=== PATIENT | female | born 1960 | race Caucasian/White ===

== ENCOUNTER 2016-12-07 14:10 | Day surgery (SDC) | payer MEDICARE ==
[~2016-12-07] VITALS: Ht 160 cm; Wt 115.7 kg
[~2016-12-07 14:10] MED LIST: ADVAIR 250/5028 PUFF IN; ALBUTEROL-200 PUFFS/ IH; AMLODIPINE10 MG PO; CLONAZEPAM0.5 M1 PO; IPRATROPIUM 2.2.5 ML INH; LISINOPRIL40 MG PO; LORTAB 10/3251 TAB PO; METFORMIN500 MG PO; METOPROLOL TAR100 MG PO; PERCOCET 10 MG1 EACH PO; PRAVASTATIN 20M20 MG PO; PREDNISONE 20MG20 MG PO; SINGULAIR 10 MG10 MG PO; VENTOLIN H0.09 MG/AC IH; ZITHROMAX Z PA250 MG PO
[2016-12-07 14:27] VITALS: BP 152/56
[2016-12-07 14:44] VITALS: BP 152/56
[2016-12-07 14:45] VITALS: BP 152/56
--- NOTE | 2016-12-07 14:51 | Procedure Note ---
Procedure detail Date of procedure: 12/07/16 Anesthesiologist: Blood pressure alicia CLAYTON Complications: None Pre-procedure diagnosis: Degenerative osteoporosis RIGHT knee Post-procedure diagnosis: Same Indications for procedure: This patient's a very pleasant 56-year-old morbidly obese white female that we treating her pain clinic for chronic low back pain in her to degenerative disc disease lumbar spine multiple levels lumbar recopy symptoms. Patient describes low back pain as constant, dull, aching. She rates her pain a 6/10. Patient also complaining of RIGHT knee pain. 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 Patient requesting RIGHT intra-articular knee injection today. I think this would be reasonable given the degree of degenerative osteoarthritis. We will schedule her RIGHT intra-articular knee injection. We do medically manage the patient with Percocet 10 mg 1 by mouth U ID. Patient reports pain medicine decreases her pain by 50-75 percent. She does not report any side effects from the pain medication. I discussed in detail with the patient regarding weight loss. I counseled her on nutritional choices. Patient resists today for RIGHT intra-articular knee injection. Procedure detail: Details of procedures by the patient. The patient was taken to the procedure room in the sitting position. The area of the RIGHT knee was cleansed using chlorhexidine as a cleansing solution. A marker was placed at the inferior lateral border of the patella. The skin and subcu tissue was anesthetized using 1 percent lidocaine and 25-gauge needle. Using a 22-gauge inch and a half needle the RIGHT knee joint was accessed and 3 mL of 0.25 percent Marcaine +3 mL 1 percent lidocaine and 40 mg of Depo-Medrol was injected. The needle was removed. Band-Aids applied. Patient on the procedure without difficulty. There were no complications. Plan and disposition: Patient was reevaluated 10 minutes post procedure. Patient reports 90 percent improvement terms of her RIGHT knee pain. at [id number]
[2016-12-07 14:52] VITALS: BP 154/75
--- OUTSIDE RECORDS SUMMARY | 2016-12-07 18:04 | External Medical Summary Rpt ---
Author Author [facility], [employer] Organization [employer] Address Unknown Phone Unavailable
--- OUTSIDE RECORDS SUMMARY | 2016-12-07 18:04 | External Medical Summary Rpt ---
Demographics Preferred Language Luxembourgish Marital Status Unknown Judaism Affiliation Unknown Race Unknown Ethnic Group Unknown Author Author , Organization [employer] Address Unknown Phone Unavailable Purpose Continuity of Care Document - through 2016 Immunization No patient found.
--- OUTSIDE RECORDS SUMMARY | 2016-12-07 18:04 | External Medical Summary Rpt ---
Demographics Preferred Language Slovenian Marital Status Unknown Mosque Affiliation Unknown Race Unknown Ethnic Group Unknown Author Author , Organization [employer] Address Unknown Phone Unavailable Purpose Continuity of Care Document - through 2016 Immunization No patient found.
--- OUTSIDE RECORDS SUMMARY | 2016-12-07 18:04 | External Medical Summary Rpt ---
Author Author [employer] Organization [employer] Address Unknown Phone Unavailable Purpose Continuity of Care Document - through 2016
--- OUTSIDE RECORDS SUMMARY | 2016-12-07 18:04 | External Medical Summary Rpt ---
Author Author , Organization [employer] Address Unknown Phone Unavailable Purpose Continuity of Care Document - through 2016 Problems Code Diagnosis DOS Provider Status J18.9 PNEUMONIA, UNSPECIFIED ORGANISM J20.9 ACUTE BRONCHITIS, UNSPECIFIED R30.0 DYSURIA R91.1 SOLITARY PULMONARY NODULE
== END 2016-12-07 14:52 | disposition home or self-care (01) ==
LOC: PM 14:10
PROC: 3E0U329 Introduction of Other Anti-infective into Joints, Percutaneous Approach (ICD-10-PCS; principal; 2016-12-07)
PROC: 3E0U33Z Introduction of Anti-inflammatory into Joints, Percutaneous Approach (ICD-10-PCS; 2016-12-07)
DX: M17.11 Unilateral primary osteoarthritis, right knee (principal)
CPT/HCPCS: J1030